=== PATIENT | male | born 1945 | race Caucasian/White ===

== ENCOUNTER 2018-06-19 01:06 | Inpatient (IN) | payer MEDICARE, OTHER ==
[~2018-06-19] VITALS: Ht 188 cm; Wt 115.2 kg
[~2018-06-19 01:06] MED LIST: CYCL-259 PO; HUM100VI SQ-INSULIN; HYDR-3240 PO
--- NOTE | 2018-06-19 01:07 | NUR ---
received report from [facility] staff, patient c/o intermittent chest pain with slight sob all day. N/V/D all day. hypotensive upon EMS arrival. given 2 liters of NS and Norepinephrine drip started [facility].
[2018-06-19] MEDS ORDERED: AMIODARONE 150 MG in DEXTROSE 5% 100 ML IV ONE (01:13)
--- NOTE | 2018-06-19 01:13 | NUR ---
PG CODE CARDIAC @0113 PG CARDS @0110
--- NOTE | 2018-06-19 01:13 | NUR ---
code cardiac called @ 0111
[2018-06-19] MEDS ORDERED: AMIODARONE 50 MG/ML, 3ML ONE ×2 (01:14→07:45)
[2018-06-19] MEDS ORDERED: ASPIRIN 325 MG TABLET ONE (01:14)
--- NOTE | 2018-06-19 01:15 | NUR ---
PT INTUBATED USING RSI AND DR PARK AT BEDSIDE. AFTER SECURING TUBE AT 24 @ THE LIP AND CONFIRMING PLACMENT OF TUBE WITH X-RAY PT WAS PLACED ON MONITOR AND TRANSPORTED TO COMPUTER TESTER. REPORT GIVEN TO COMPUTER TESTER RN AND PT MOVED TO COMPUTER TESTER TABLE.
[2018-06-19 01:28] LABS: BASOPHILS # (AUTO) 0.02 x10^3/uL (0-0.1); BASOPHILS % (AUTO) 0 % (0-1); EOSINOPHILS # (AUTO) 0.12 x10^3/uL (0-0.4); EOSINOPHILS % (AUTO) 1 % (1-7); LYMPHOCYTES # (AUTO) 1.82 x10^3/uL (1-3.4); LYMPHOCYTES % (AUTO) 12 % (22-44); MD NO; MEAN CORPUSCULAR HEMOGLOBIN 30.9 pg (27.5-34.5); MEAN CORPUSCULAR HGB CONC 34.2 g/dL (33.2-36.2); MEAN CORPUSCULAR VOLUME 90.3 fL (81-97); MEAN PLATELET VOLUME 9.8 fL (7.4-10.4); MONOCYTES # (AUTO) 0.64 x10^3/uL (0.2-0.8); MONOCYTES % (AUTO) 4 % (2-9); NEUTROPHILS # (AUTO) 12.39 x10^3/uL (1.8-6.8); NEUTROPHILS % (AUTO) 83 % (42-75); PLATELET COUNT 273 x10^3/uL (130-400); RED BLOOD COUNT 4.61 x10^6/uL (4.38-5.82); RED CELL DISTRIBUTION WIDTH 13.9 % (9.4-14.8)
[2018-06-19] MEDS ORDERED: ASPIRIN 81 MG TABLET CHEW PO ONE (01:30)
[2018-06-19] MEDS ORDERED: SODIUM CHLORIDE 0.9% 1,000ML IVBOLUS ONE (01:30)
[2018-06-19] MEDS ORDERED: FILTER 0.22 MICRON IV ONE (01:30)
[2018-06-19] MEDS ORDERED: SODIUM CHLORIDE FLUSH 10ML SYR IVF ONE (01:30)
[2018-06-19] MEDS ORDERED: AMIODARONE 50 MG/ML, 3ML IVPush ONE ×2 (01:30→02:00)
[2018-06-19 01:38] LABS: INTERNATIONAL NORMALIZED RATIO 1.04 (0.93-1.1); PROTHROMBIN TIME 10.9 Seconds (9.6-11.5)
[2018-06-19 01:40] LABS: ALANINE AMINOTRANSFERASE 23 U/L (12-78); ALBUMIN 3.6 g/dL (3.4-5.0); ANION GAP 10 mmol/L (5-15); CALCIUM 8.5 mg/dL (8.5-10.1); CHLORIDE 106 mmol/L (98-107); CREATININE 1.51 mg/dL (0.7-1.3)
[2018-06-19 01:45] LABS: ALKALINE PHOSPHATASE 123 U/L (45-117); BILIRUBIN,TOTAL 0.7 mg/dL (0.2-1.0); T4 (THYROXINE) 9.3 mcg/dL (4.5-12.1); TOTAL PROTEIN 7.4 g/dL (6.4-8.2)
[2018-06-19] MEDS ORDERED: TICAGRELOR 90 MG TABLET ONE (01:50)
[2018-06-19] MEDS ORDERED: NITROGLYCERIN 5 MG/ML, 10ML ONE (01:50)
[2018-06-19] MEDS ORDERED: BIVALIRUDIN 250 MG ONE ×3 (01:50→04:10)
[2018-06-19] MEDS ORDERED: VERAPAMIL 2.5 MG/ML, 2ML ONE (01:50)
[2018-06-19] MEDS ORDERED: FENTANYL PF 100 MCG/2ML ONE (01:50)
[2018-06-19] MEDS ORDERED: MIDAZOLAM 1 MG/ML, 5ML ONE (01:50)
[2018-06-19 01:51] LABS: TROPONIN I 0.537 ng/mL (0.000-0.045)
[2018-06-19] MEDS ORDERED: HEPARIN 1,000 UNITS/ML, 10ML ONE (01:51)
[2018-06-19] MEDS ORDERED: LIDOCAINE 2%, 20ML ONE (01:51)
[2018-06-19] MEDS ORDERED: morphine SULFATE 10 MG/ML, 1ML IVPush PRN (02:00)
[2018-06-19] MEDS ORDERED: hydrALAzine 20 MG/ML, 1ML IVPush PRN (02:00)
[2018-06-19] MEDS ORDERED: AMIODARONE 900 MG in DEXTROSE 5% 482 ML IV PRN ×2 (02:00→05:00)
[2018-06-19] MEDS ORDERED: PHENYLEPHRINE 10 MG/ML ONE ×3 (02:28→04:35)
[2018-06-19] MEDS ORDERED: MAGNESIUM SULF. PMX 20GM/500ML 500 ML IV PRN (02:30)
[2018-06-19 03:19] LABS: HEMOGLOBIN A1C 8.7 % (4.2-6.3)
[2018-06-19] MEDS ORDERED: NOREPINEPHRINE 4 MG in SODIUM CHLORIDE 0.9% 246 ML IV PRN ×2 (04:00→04:30)
[2018-06-19] MEDS ORDERED: HEPARIN 5,000 UNITS/ML, 1ML IV ONE (04:30)
[2018-06-19] MEDS ORDERED: HEPARIN 5,000 UNITS/ML, 1ML IV PRN (04:30)
[2018-06-19] MEDS ORDERED: HEPARIN 25,000 UNITS/500ML PMX 500 ML IV PRN (04:30)
[2018-06-19] MEDS ORDERED: CLOPIDOGREL 300 MG TABLET ONE (04:36)
[2018-06-19] MEDS ORDERED: MAGNESIUM SULFATE PMX 2GM/50ML 50 ML ONE (04:37)
[2018-06-19] MEDS ORDERED: PROPOFOL 100 ML IV PRN (04:45)
[2018-06-19] MEDS: PHENYLEPHRINE 20 MG in SODIUM CHLORIDE 0.9% 248 ML IV PRN ×2 (04:53→07:03)
[2018-06-19 05:00] VITALS: BP_SYST 103; BP_SYST 95; BP_DIAS 71; BP_DIAS 76
[2018-06-19] MEDS ORDERED: FENTANYL PF 100 MCG/2ML IVPush PRN (05:00)
[2018-06-19] MEDS ORDERED: GLUCAGON 1 MG IM PRN (05:00)
[2018-06-19] MEDS ORDERED: LIDOCAINE-MPF 1%, 2ML ENDO PRN (05:00)
[2018-06-19] MEDS ORDERED: LACTULOSE 20 GM/30 ML UDC NG PRN (05:00)
[2018-06-19] MEDS ORDERED: PHARMACY MAY ADJ FOR RENAL FX MC SCH (05:00)
[2018-06-19] MEDS ORDERED: DEXTROSE 50%, 50ML SYRINGE IVPush PRN (05:00)
[2018-06-19] MEDS ORDERED: AMPICILLIN/SULBACTAM 3 GM in SODIUM CHLORIDE 0.9% 100 ML IV SCH (05:00)
[2018-06-19] MEDS ORDERED: DEXTROSE 4 GM TAB.CHEW PO PRN (05:00)
[2018-06-19] MEDS ORDERED: MAGNESIUM SULFATE PMX 2GM/50ML 50 ML IV ONE (05:00)
[2018-06-19] MEDS ORDERED: BISACODYL 10 MG SUPP PR PRN (05:00)
[2018-06-19] MEDS ORDERED: SENNA/DOCUSATE TABLET NG PRN (05:00)
[2018-06-19] MEDS ORDERED: SENNA 176 MG/5 ML ORAL SOL NG PRN (05:00)
[2018-06-19] MEDS ORDERED: CLOPIDOGREL 300 MG TABLET PO ONE (05:00)
[2018-06-19] MEDS: NOREPINEPHRINE 4 MG in SODIUM CHLORIDE 0.9% 246 ML IV PRN ×2 (05:05→05:24)
[2018-06-19] MEDS ORDERED: SODIUM BICARBONATE 8.4% 150 MEQ in DEXTROSE 5% 1,000 ML IV SCH ×2 (05:30→09:00)
[2018-06-19] MEDS ORDERED: SODIUM BICARB 8.4%, 50ML SYRINGE ONE ×4 (05:30→09:30)
[2018-06-19] MEDS ORDERED: SODIUM BICARBONATE 1 MEQ/ML, 50ML VIAL IVPush ONE (05:30)
[2018-06-19 06:25] LABS: MEAN CORPUSCULAR HEMOGLOBIN 31.4 pg (27.5-34.5); MEAN CORPUSCULAR HGB CONC 34.2 g/dL (33.2-36.2); MEAN CORPUSCULAR VOLUME 91.7 fL (81-97); MEAN PLATELET VOLUME 9.4 fL (7.4-10.4); PLATELET COUNT 278 x10^3/uL (130-400); RED BLOOD COUNT 3.98 x10^6/uL (4.38-5.82)
[2018-06-19] MEDS ORDERED: INSULIN LISPRO 100 UNITS/ML, PEN SQ-INSULIN SCH ×2 (07:00)
[2018-06-19 07:14] LABS: MD YES
[2018-06-19 07:15] LABS: BAND#(MANUAL) 2.87 x10^3/uL; BANDS%(MANUAL) 10 % (0-7); LYMPH#(MANUAL) 3.16 x10^3/uL (1-3.4); LYMPHS% (MANUAL) 11 % (22-44); MONOS#(MANUAL) 0.86 x10^3/uL (0.3-2.7); MONOS% (MANUAL) 3 % (2-9); SEG#(MANUAL) 21.81 x10^3/uL (1.8-6.8); SEGS% (MANUAL) 76 % (42-75)
[2018-06-19] MEDS: ALBUTEROL/IPRATROPIUM 2.5MG/0.5MG, 3 ML INLINE SCH ×2 (07:15→10:25)
[2018-06-19 07:16] LABS: <PLATELET ESTIMATE> ADEQUATE; <PLT MORPHOLOGY> NORMAL PLT MORPH; <RBC MORPHOLOGY> NORMAL
[2018-06-19] MEDS ORDERED: DEXTROSE 50%, 50ML SYRINGE ONE (07:43)
[2018-06-19 07:44] LABS: MICROSCOPIC INDICATED
[2018-06-19] MEDS ORDERED: ETOMIDATE 20 MG/10 ML ONE (07:46)
[2018-06-19 07:49] LABS: CULTURE INDICATED? YES
[2018-06-19 07:54] LABS: INTERNATIONAL NORMALIZED RATIO 5.93 (0.93-1.1); PROTHROMBIN TIME 58.1 Seconds (9.6-11.5)
[2018-06-19 07:55] LABS: PARTIAL THROMBOPLASTIN TIME > 153 Seconds (25-31)
[2018-06-19 08:37] LABS: HIT RESULT NEGATIVE (NEGATIVE)
[2018-06-19] MEDS ORDERED: SODIUM BICARB 8.4%, 50ML SYRINGE IVPush ONE ×2 (09:00)
[2018-06-19] MEDS ORDERED: ASPIRIN 325 MG TABLET EC PO SCH (09:00)
[2018-06-19] MEDS ORDERED: SODIUM CHLORIDE FLUSH 10ML SYR IVF SCH ×2 (09:00→21:00)
[2018-06-19] MEDS ORDERED: CLOPIDOGREL 75 MG TABLET PO SCH (09:00)
[2018-06-19] MEDS ORDERED: PANTOPRAZOLE 40 MG IV IV SCH (09:00)
[2018-06-19 09:20] LABS: ALBUMIN 2.7 g/dL (3.4-5.0); ANION GAP 20 mmol/L (5-15); CALCIUM 7.8 mg/dL (8.5-10.1); CHLORIDE 106 mmol/L (98-107); CREATININE 2.03 mg/dL (0.7-1.3); TRIGLYCERIDES 87 mg/dL (50-200)
[2018-06-19] MEDS ORDERED: EPINEPHRINE 1 MG/ML, 1ML ONE ×2 (09:20→09:30)
[2018-06-19] MEDS ORDERED: SODIUM CHLORIDE 0.9%, 250ML ONE (09:30)
[2018-06-19] MEDS ORDERED: EPINEPHRINE SYRINGE 0.1 MG/ML, 10ML ONE (09:30)
[2018-06-19] MEDS ORDERED: CODE BLUE RESPONSE XX ONE (09:30)
[2018-06-19 09:33] LABS: ALKALINE PHOSPHATASE 124 U/L (45-117); BILIRUBIN,TOTAL 1.4 mg/dL (0.2-1.0); TOTAL PROTEIN 6.6 g/dL (6.4-8.2)
[2018-06-19 09:35] LABS: ALANINE AMINOTRANSFERASE 403 U/L (12-78); TROPONIN I > 200.000 ng/mL (0.000-0.045)
[2018-06-19] MEDS ORDERED: EPINEPHRINE 2 MG in SODIUM CHLORIDE 0.9% 248 ML IV PRN (10:00)
[2018-06-19] MEDS ORDERED: LORazepam INTENSOL 2 MG/ML SL PRN (11:00)
[2018-06-19] MEDS ORDERED: LORazepam 2 MG/ML, 1ML IVPush PRN (11:00)
[2018-06-19] MEDS ORDERED: MORPHINE SULFATE 4 MG/ML, 1ML IVPush PRN (11:00)
== END 2018-06-19 11:54 | disposition expired | DRG 215 ==
LOC: ED 01:14 → EDIP 01:46 → CCU 04:12
PROVIDERS: ADMIT Family Medicine; ATTEND Family Medicine
PROC: 5A0221D Assistance with Cardiac Output using Impeller Pump, Continuous (ICD-10-PCS; principal; 2018-06-19)
PROC: 02HA3RZ Insertion of Short-term External Heart Assist System into Heart, Percutaneous Approach (ICD-10-PCS; 2018-06-19)
PROC: 027136Z Dilation of Coronary Artery, Two Arteries with Three Drug-eluting Intraluminal Devices, Percutaneous Approach (ICD-10-PCS; 2018-06-19)
PROC: 4A023N7 Measurement of Cardiac Sampling and Pressure, Left Heart, Percutaneous Approach (ICD-10-PCS; 2018-06-19)
PROC: B2111ZZ Fluoroscopy of Multiple Coronary Arteries using Low Osmolar Contrast (ICD-10-PCS; 2018-06-19)
PROC: 0BH17EZ Insertion of Endotracheal Airway into Trachea, Via Natural or Artificial Opening (ICD-10-PCS; 2018-06-19)
PROC: 5A12012 Performance of Cardiac Output, Single, Manual (ICD-10-PCS; 2018-06-19)
PROC: 5A1935Z Respiratory Ventilation, Less than 24 Consecutive Hours (ICD-10-PCS; 2018-06-19)
DX: I21.09 ST elevation (STEMI) myocardial infarction involving other coronary artery of anterior wall (principal); J96.01 Acute respiratory failure with hypoxia; J69.0 Pneumonitis due to inhalation of food and vomit; I50.21 Acute systolic (congestive) heart failure; G93.1 Anoxic brain damage, not elsewhere classified; E87.2 Acidosis; I47.2 Ventricular tachycardia; I21.29 ST elevation (STEMI) myocardial infarction involving other sites; R57.0 Cardiogenic shock; I11.0 Hypertensive heart disease with heart failure; I25.10 Atherosclerotic heart disease of native coronary artery without angina pectoris; I25.82 Chronic total occlusion of coronary artery; I45.10 Unspecified right bundle-branch block; I48.91 Unspecified atrial fibrillation; E11.42 Type 2 diabetes mellitus with diabetic polyneuropathy; R31.9 Hematuria, unspecified; Z51.5 Encounter for palliative care; E11.51 Type 2 diabetes mellitus with diabetic peripheral angiopathy without gangrene
CPT/HCPCS: 31500; 33990; 36415; 36600; 71045; 80053; 81001; 82803; 82805; 83036; 83605; 83735; 83880; 84100; 84145; 84436; 84443; 84478; 84484; 85025; 85347; 85610; 85730; 86022; 87040; 87070; 87081; 87086; 87205; 92920; 92950; 93005; 93308; 93325; 94002; 94003; 94640; 99156; 99157; C1769; C1894; C9600; G0378; J0171; J0295; J0583; J1644; J2250; J3010; J7070; J7620; 92928; C1725; C1874; C1887; J0282; J2060; J2270; J2370; J3475; J7030; J7050; J7060; Q9967